=== PATIENT | male | born 1970 | race Caucasian/White ===

== ENCOUNTER → 2023-04-07 | Outpatient (CLI) | payer BC, SELFPAY ==
--- NOTE | 2023-04-07 12:37 | ST.MBS ---
Modified Barium Swallow Patient Information Study Date: 04/07/23 Study Time: 09:00 Direct Billable Minutes: 73 Total Minutes procedure & reportin Diagnosis: Squamous cell carcinoma of parotid (C07) Referring Physician: Hawk Hurd Reason for Referral: Objectively assess swallow function, assess risk for aspiration, and determine recommendations for least restrictive diet textures and compensatory strategies to improve safety of swallow. 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 After surgery, he noticed slightly decreased jaw opening, but it has since returned to normal. Irritation in swallow following surgery. He denies any current dysphagia or trismus. He is planned for radiation treatment for 6-7 weeks beginning 03/31/2023. Patient was recommended for MBSS to rule out risk for aspiration and to provide information re: baseline swallow function due to risk for worsening swallow function from current radiation treatment to treat SCC of R parotid gland. Current Diet Ordered: Regular textures / Thin liquids Dentition: WNL Mental Status: WNL Respiratory Status: Oxygenating on Room Air Penetration-Aspiration Scale Penetration-Aspiration Scale: OBJECTIVE ASSESSMENT OF SWALLOW FUNCTION (QUANTITATIVE ? PER TRIAL): PENETRATION / ASPIRATION SCALE (DOUGLASS): 1 = does not enter airway 2 = enters airway/above vocal folds/ejected 3 = enters airway/above vocal folds/not ejected 4 = enters airway/contacts vocal folds/ejected 5 = enters airway/contacts vocal folds/not ejected 6 = enters airway/below vocal folds/ejected 7 = enters airway/below vocal folds/not ejected despite effort 8 = enters airway/below vocal folds/no effort VIDEOFLOROSCOPIC SCALE SCORE (DOUGLASS): Grade I = aspiration of material that has penetrated into the laryngeal vestibule, intact cough reflex Grade II = aspiration < 10 % of the bolus, intact cough reflex Grade III = aspiration of < 10 % of the bolus, reduced cough reflex or aspiration of > 10 % of the bolus, intact cough reflex Grade IV = aspiration of > 10 % of the bolus, reduced cough reflex Penetration-Aspiration Scale Score Thin Liquid via teaspoon: Result: 1= does not enter airway Thin Liquid via teaspoon Trial 2: Result: 1= does not enter airway Thin Liquid via large single sip: cup: Result: 1= does not enter airway [place] Thick Liquid via small single sip: cup: Result: 1= does not enter airway Pudding via teaspoon: Result: 1= does not enter airway Cookie: Result: 1= does not enter airway Thin Liquid via sequential sips:straw: Result: 1= does not enter airway Oral Phase Labial Seal: No Labial Escape Tongue Control During Bolus Hold: Cohesive bolus between tongue to palatal seal Bolus Preparation/Mastication: Timely and efficient chewing and mashing Bolus Transport/Lingual Motion: Delayed initiation of tongue motion Oral Residue: Trace residue lining oral structures Pharyngeal Phase Initiation of Pharyngeal Swallow: Bolus head in pyriforms Soft Palate Elevation: No bolus between soft palate and pharyngeal wall Laryngeal Elevation: Comp. Superior move thyroid cart w/comp. apprx arytenoid cart-epig pet Anterior Hyoid Excursion: Partial anterior movement Epiglottic Movement: Complete inversion Laryngeal Vestibule Closure at Height of Swallow: Complete; no air/contrast in laryngeal vestibule Pharyngeal Stripping Wave: Present - complete Pharyngoesophageal Segment Opening: Parital distension and partial duration; parital obstruction of flow (trace retention with min retrograde flow through the upper esophageal sphincter) Tongue Base Retraction: Narrow column of contrast between tongue base & post. pharyngeal wall Pharyngeal Residue: Collection of residue within or on pharyngeal structures Esophageal Phase Esophageal Clearance: Esophageal retention w/ retrograde flow through pharyngoesophageal seg (minimal retention in mid esophagus of pudding; trace retention of thin liquids with min retrograde flow through the upper esophageal sphincter) Diagnosis/Impression Diagnosis: Oropharyngeal swallow function grossly WNL Impression: Mildly decreased tongue base retraction with trace-mild pharyngeal residue of thin liquids on certain trials. Despite mildly decreased anterior hyoid excursion, the patient has good laryngeal elevation and airway closure during the swallow. No laryngeal penetration or aspiration observed during the swallow. Trace retention of thin contrast in upper esophageal sphincter with retrograde flow to the pyriforms. Recommendations Diet: Regular Textures and Thin Liquids Compensatory Strategies: Small Bites, Small Sips, Slow Rate and Sitting upright Recommend Repeat Modified Barium Swallow: Yes (3 months s/p radiation treatment for SCC of R parotid gland to monitor risk for dysphagia and aspiration) Need for Skilled Speech Therapy Services: Yes Comment: Continue OP dysphagia therapy to monitor risk for aspiration, weight loss, malnutrition, and dehydration during radiation treatment as the patient is at risk for worsening swallowing function during and following radiation treatment. Education Completed: 1. Described result of evaluation. and 2. Pt understands evaluation & agrees with goals and treatment plan. Status Active ST Patient: Active Contact Information [facility] Speech Therapy:: Kimberly Velázquez M.A. [facility] Speech-Language Pathologist [facility] [address] [place] [address] [email or web address] [phone]
== END | disposition home or self-care (01) ==
PROVIDERS: Referring Provider Student in an Organized Health Care Education/Training Program; Visit Provider Student in an Organized Health Care Education/Training Program
DX: C07 Malignant neoplasm of parotid gland (principal)
CPT/HCPCS: 74230; 92611

== ENCOUNTER 2023-05-28 10:28 | Outpatient (RCR) | payer BC, SELFPAY | END 2023-06-22 23:59 | LOC: NS 10:28 | PROVIDERS: Visit Provider Student in an Organized Health Care Education/Training Program | DX: Z71.3 Dietary counseling and surveillance (principal); C07 Malignant neoplasm of parotid gland ==

== ENCOUNTER 2023-07-31 14:30 | Outpatient (RCR) | payer BC, SELFPAY ==
--- NOTE | 2023-03-24 12:53 | HP.SP.EV_ITS ---
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 After surgery, he noticed slightly decreased jaw opening, but it has since returned to normal. Irritation in swallow following surgery. He denies any current dysphagia or trismus. He is planned for radiation treatment for 6-7 weeks beginning 03/31/2023. Patient is employed by [employer]. He lives with his and daughter and has another daughter in college. Smoking Status: Never smoker Pain Is pain an issue with your current prescribed condition?: No Personal Preferred language: Com[place] Patient Allergies Allergies Allergies: Allergies No Known Allergies Allergy (Verified 03/18/23 10:05) Subjective Dysphagia Current Diet Solids Current Diet: Regular Current Diet Liquids Current Liquids: Thin Objective Dysphagia Administered by Administered by: Self Thin Liquids Administred via: Cup and Straw Oral Transit: WNL Bolus clearance: fully cleared Gagging: No Cough: none observed/unable to assess Pharyngeal phase: immediate laryngeal elevation Comments: No s/s of aspiration or patient reports of sensation of retention. Pureed Administered via: Spoon Oral Preparation: WNL Oral Transit: WNL Bolus clearance: fully cleared Cough: none observed/unable to assess Pharyngeal phase: immediate laryngeal elevation Comments: No s/s of aspiration or patient reports of sensation of retention. Regular Oral Preparation: WNL Oral Transit: WNL Bolus clearance: fully cleared Cough: throat clear Pharyngeal phase: immediate laryngeal elevation Comments: Throat clear following 1 bite. No patient reports of sensation of retention. Swallowing Impairment Other: No current perceived swallowing impairment. Impact Impact on Safety & Functioning: Risk for Aspiration and Risk for Inadequate Nutrition/Hydration Comments: Patient is beginning radiation treatment for SCC of R parotid gland. He is at increased risk for dysphagia due to short term effects of radiation, including xerostomia, dysgeusia, hypogeusia, disuse atrophy, and/or mucositis. MBSS recommended by TILE EDGER and Dr. Hurd to determine baseline swallow function and further assess aspiration risk as the patient's swallow is at risk to worsen over time from fdc effects of radiation, such as radiation fibrosis, xerotomia, and/or lymphedema. Recommendations Modified Barium Swallow/Cookie Swallow Recommended: Yes Swallowing Treatment: Yes Diet Texture Recommendations Solids: Regular (Level 7) Liquids: Thin (Level 0) Safety Saftey Precautions/Swallowing Recommendations (Check all that Apply): Small Sips & Bites when Eating Other: Sitting upright, Slow rate Results Swallowing Within Normal Limits: Yes SHIP PURSER V Trigeminal Nerve V Trigeminal Nerve Response: Intact VII Facial Nerve VII Facial Nerve Result: Intact X Vagus Nerve X Vagus Nerve Result: Intact XII Hypoglossal Nerve XII Hypoglossal Nerve Result: Intact Swallowing Performance Scale Swallowing Performance Scale Swallowing Performance Scale Result: 1 Normal Reference: Neuro-QoL instrument Radiation Oncology Patient FOIS Functional Oral Intake Scale Total oral diet with no restrictions: Level 7 SP Oncology PSS-HN PSS-HN Test Normalcy of Diet: Full diet Scale Result:: 100 Public Eating: No restrictions of place, food or companions-eats out any opportunity Public eating scale: 100 Understandability of Speech: Always understandable Understandability of Speech Scale: 100 Plan Plan Plan: While the patient is demonstrating overall normal swallow function at this time, will recommend dysphagia therapy to implement prophylactic oropharyngeal exercise program prior to chemoradiation and to provide ongoing assessment of swallow function and diet tolerance during treatment. Will additionally monitor patient for trismus. The patient is at increased risk for dysphagia, trismus, aspiration, malnutrition, and dehydration during radiation treatment to treat his right parotid gland squamous cell carcinoma. Will plan to obtain MBSS to determine the patient's baseline swallow function. He will be planned for repeat MBSS 3 months s/p radiation, followed by at least yearly MBSS in the first 5 years following radiation, as the patient's swallow is at risk to worsen due to long-term effects of chemoradiation. Recommendations MBS: Yes Treatment Warranted: Yes Treatment Warranted: Dysphagia Progress Prognosis: Good Frequency Frequency: Every Other Week Additional (Frequency): Frequency to change during POC based on patient's ignacio ing needs for ST during and after radiation treatment. Duration: 12 Months Goals that are Established Determination:: Goals will be added/modified as deemed necessary and appropriate. Therapy will be discontinued when results of re-evaluation indicate therapy is no longer needed or lack of progress has been documented. Goal #1-5 Goal #1: (LTG) The patient will consume least restrictive diet textures without overt s/s of aspiration with 90% acc with minimal verbal cues to decrease risk for aspiration. Goal #2: (STG) The patient will complete an oropharyngeal exercise program during and post radiation treatment independently to improve and maintain strength, ROM, and coordination of swallowing mechanism (X10 repetitions, 3-5X daily). Goal #3: (STG) The patient will complete jaw strength, coordination, and ROM exercises during and post radiation treatment independently to improve mastication and speech production abilities (X10 repetitions, 3-5X daily). Goal #4: (LTG) The patient will maintain jaw opening 35-55mm during and after radiation treatment to maintain mastication and speech abilities. Education Patient has Indicated that the Following Identified Educational Needs: None The Patient has indicated that they have no educational or learning abilities that may effect their care.: Yes Patient Instruction Patient Education: Treatment Plan, Goals, Diet Level and Home Exercise Program Other Education: Education provided regarding the potential impacts of radiation treatment on swallow function during and post treatment, including effects such as mucositis, dysgeusia, radiation fibrosis, lymphedema, and disuse atrophy which may result in restricted range of motion and weakness of swallowing mechanism. Discussed impaired swallowing and increased risk for aspiration, aspiration related illnesses, weight loss, and malnutrition. Discussed importance for speech therapy to monitor and address dysphagia during and post radiation treatment to maintain optimal swallow function and jaw ROM through continued education and prophylactic exercise program. Provided the patient a handout and demonstration of prophylactic oropharyngeal exercise program, as well as jaw ROM exercise ([place] X30 daily, [place] X30 daily, Effortful X30 daily, Jaw stretch X50 daily. The patient provided return demonstration with exercises with moderate verbal cues and demonstration. The patient would benefit from continued training to monitor proper execution of exercises and encourage strict adherence to exercise program. Person Taught: Patient Teaching Method: Discussion, Demonstration, Handout and Teach back Response to teaching: Return demonstration, Verbalize understanding and Reinforcement needed
== END 2023-07-31 19:00 | disposition home or self-care (01) ==
LOC: OT 14:30
PROVIDERS: Referring Provider Student in an Organized Health Care Education/Training Program; Visit Provider Student in an Organized Health Care Education/Training Program
DX: C07 Malignant neoplasm of parotid gland (principal); R13.10 Dysphagia, unspecified
CPT/HCPCS: 92526; 92610

== ENCOUNTER 2023-08-07 11:30 | Outpatient (RCR) | payer BC, SELFPAY ==
--- NOTE | 2023-08-01 06:53 | HP.OTEVAL_ITS ---
Patient's Visit Information Visit Information Visit Information: MEAGAN LINDSAY Jr. is a 53 year old M, referred to Occupational Therapy by Dr. Hawk Hurd DO, with a diagnosis of malignant neoplasm of parotid gland, lymphedema. Date of Evaluation: 07/31/23 Occupational Therapist: DAMION Chirinos/Karoline, CHT Subjective Subjective: This 53 year old male was seen for OT eval with dx of lymphedema sx was 2022. states he feels he was told around 40+ lymph nodes removed with the tumor pt states he did 6 weeks of radiation finished 05/14/23. pt states his neck started during radiation- but states he has lost more weight- and has become more noticeable. last 4 weeks more pronounced. Both express they want to know what they can do to get the swelling to go away. ROM ROM Comments: pt demo with with neck ROM WFL- states tightness with turning head side latterly to left Edema Other: Neck circumferential: neck 49cm head-chin 73cm Goals Goal: Patient will demonstrate a 20% reduction in edema by discharge: Yes Goal: Patient will demonstrate adequate knowledge of self-massage by the end of the second week.: Yes Goal: Patient will demonstrate adequate knowledge of skin care and precautions by the end of the first week.: Yes Goal: Patient will demonstrate adequate knowledge of therapeutic exercises by discharge.: Yes Goal: Patient will select an appropriate compression garment and demonstrate adequate knowledge of correct donning technique, care and wearing schedule by discharge.: Yes Goal: Patient will voice understanding of need to replace compression garment every four to six months by discharge.: Yes Goal: Patient will demonstrate ROM WFL by discharge.: Yes Rehabilitation General Assessment: Pt demo with head/neck lymphedema and in need of skilled OT services 3-4 visits to pt on self mtg of lymphedema, compression garments, self- manual lymph massage as well as lymph stimulation ex, and skin care and precautions. Due to dx pt would benefit from home head/neck lymphedema pneumatic pump. Today therapist ed. pt on skin care/precautions, daily use of compression garment, and/or supplement with use of k-tap. Therapist gave pt handout on self- manual lymph massage- (pt to return to allow therapist to demo [place]. and teach pt and ) pt will be instructed to perform this SMLD 2-3 x a day and use of his compression garment. pt demo understanding and agrees to POC. Rehabilitation Potential: Good Anticipated Interventions Anticipated Interventions: Education re Diagnosis, Manual Lymph Drainage, Education re Life-long lymphedema Management, Education re Skin Care and Precautions, Education re Self Massage Techniques, Education re Correct Donning Tech,Care&Wearing Sched Comp Garments and Home Program Visit Plan Frequency: 1x/Week Duration: 2-4 Weeks TEXT: Thank you for the opportunity to evaluate your patient. For Medicare and Medicare HMO plans, please review the plan of care and approve it. It will need to be FAXED BACK to us at [phone] for Medicare purposes. Please let me know if there are questions or concerns regarding this plan of care. Physician Signature: Date:
--- NOTE | 2023-10-01 14:14 | HP.OT.NRP ---
Patient Information Patient Information: MEAGAN LINDSAY Jr. was seen in my office for initial evaluation on 07/31/23. The following Plan of Care was established for this patient: POC Established Initial Frequency: 1x/Week Initial Duration: 2-4 Weeks Anticipated Interventions Anticipated Interventions: Education re Diagnosis, Manual Lymph Drainage, Education re Life-long lymphedema Management, Education re Skin Care and Precautions, Education re Self Massage Techniques, Education re Correct Donning Tech,Care&Wearing Sched Comp Garments and Home Program Last Seen Last Seen: This patient was last seen in our office 07/31/23. Pertinent comments regarding their Occupational therapy will appear below: pt was seen for eval.no further apts were scheduled and due to time lapse in services pt is d/c. At this point I will be discontinuing this patient from occupational therapy. I would be happy to see this patient again in the future if found appropriate by the physician. Thank you! Fannie Contreras, OTR/L, CHT
== END 2023-08-07 19:00 | disposition home or self-care (01) ==
LOC: OT 11:30
PROVIDERS: Referring Provider Student in an Organized Health Care Education/Training Program; Visit Provider Student in an Organized Health Care Education/Training Program
DX: C07 Malignant neoplasm of parotid gland (principal); I89.0 Lymphedema, not elsewhere classified
CPT/HCPCS: 97166; 97530

== ENCOUNTER → 2023-09-01 | Outpatient (CLI) | payer BC, SELFPAY ==
--- NOTE | 2023-09-01 14:21 | SP.MBSS_ITS ---
Modified Barium Swallow Patient Information Study Date: 09/01/23 Study Time: 13:00 Direct Billable Minutes: 103 Total Minutes procedure & reportin Diagnosis: SCC of the right parotid (C07) Referring Physician: Hawk Hurd Reason for Referral: Objectively assess swallow function, assess risk for aspiration, and determine recommendations for least restrictive diet textures and compensatory strategies to improve safety of swallow. 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 After surgery, he noticed slightly decreased jaw opening, but it has since returned to normal. He participated in radiation treatment from 04/02/2023 ? 05/14/2023. MBSS completed 04/07/23 revealing oropharyngeal swallow function grossly WNL and recommending regular textures / thin liquids. During radiation treatment, he did require a full liquid diet. He followed with ST and has since resumed regular textures / thin liquids. He was trained in prophylactic oropharyngeal exercise program prior to discharge due to risk for worsening swallow functions/p radiation treatment. He does not complete exercise program daily, but completes certain exercises here and there about every other day. His hypogeusia is mild and it comes and goes per patient report. He is managing lymphedema with OT and kinesiotaping. He has been recommended for repeat MBSS to re-assess swallow function due to risk for worsening swallow function from radiation treatment to treat SCC of R parotid gland. He denies any current dysphagia or trismus. Current Diet Ordered: Regular textures / Thin liquids Dentition: WNL and Natural Teeth Mental Status: WNL Respiratory Status: Oxygenating on Room Air Penetration-Aspiration Scale Penetration-Aspiration Scale: OBJECTIVE ASSESSMENT OF SWALLOW FUNCTION (QUANTITATIVE ? PER TRIAL): PENETRATION / ASPIRATION SCALE (DOUGLASS): 1 = does not enter airway 2 = enters airway/above vocal folds/ejected 3 = enters airway/above vocal folds/not ejected 4 = enters airway/contacts vocal folds/ejected 5 = enters airway/contacts vocal folds/not ejected 6 = enters airway/below vocal folds/ejected 7 = enters airway/below vocal folds/not ejected despite effort 8 = enters airway/below vocal folds/no effort VIDEOFLOROSCOPIC SCALE SCORE (DOUGLASS): Grade I = aspiration of material that has penetrated into the laryngeal vestibule, intact cough reflex Grade II = aspiration < 10 % of the bolus, intact cough reflex Grade III = aspiration of < 10 % of the bolus, reduced cough reflex or aspiration of > 10 % of the bolus, intact cough reflex Grade IV = aspiration of > 10 % of the bolus, reduced cough reflex Penetration-Aspiration Scale Score Thin Liquid via teaspoon: Result: 2= enter airway/above vocal folds/ejected Thin Liquid via teaspoon Trial 2: Result: 1= does not enter airway Thin Liquid via small single sip: cup: Result: 2= enter airway/above vocal folds/ejected Thin Liquid via sequential sips: cup: Result: 2= enter airway/above vocal folds/ejected [place] Thick Liquid via small single sip: cup: Result: 1= does not enter airway Pudding via teaspoon: Result: 1= does not enter airway Comment: Esophageal screen - Retention of pudding throughout the esophagus. Thin Liquid via single sip: straw: Result: 2= enter airway/above vocal folds/ejected Comment: Esophageal screen - Thin liquid wash somewhat cleared pudding contrast, but retention of pudding remained in the mid esophagus. / Cookie: Result: 1= does not enter airway Oral Phase Labial Seal: No Labial Escape Tongue Control During Bolus Hold: Posterior escape of less than half of bolus Bolus Preparation/Mastication: Timely and efficient chewing and mashing Bolus Transport/Lingual Motion: Brisk tongue motion Oral Residue: Trace residue lining oral structures Pharyngeal Phase Initiation of Pharyngeal Swallow: Bolus head at posterior laryngeal surgace of epiglottis Soft Palate Elevation: Trace column of contrast/air between soft palate and pharyngeal wall Laryngeal Elevation: Comp. Superior move thyroid cart w/comp. apprx arytenoid cart-epig pet Anterior Hyoid Excursion: Complete anterior movement Epiglottic Movement: Complete inversion Laryngeal Vestibule Closure at Height of Swallow: Incomplete; narrow column of air/contrast in laryngeal vestibule Pharyngeal Stripping Wave: Present - diminished Pharyngoesophageal Segment Opening: Parital distension and partial duration; parital obstruction of flow Tongue Base Retraction: Trace column of contrast between tongue base & post. pharyngeal wall Pharyngeal Residue: Trace residue within or on pharyngeal structures Esophageal Phase Esophageal Clearance: Esophageal retention Diagnosis/Impression Diagnosis: Oropharyngeal swallow function grossly WNL Impression: Oropharyngeal swallow function grossly WNL. Decreased bolus control with <1/2 of the bolus spilling posteriorly to the posterior laryngeal surface of the epiglottis prior to swallow onset observed with thin liquids especially. Trace laryngeal penetration of thin liquids observed throughout study. All trials successfully ejected from the laryngeal vestibule during the swallow. No aspiration observed during the study. The esophageal phase is marked by... -Esophageal retention of pudding throughout esophagus. Esophageal retention somewhat improved when provided thin liquid wash. Recommendations Diet: Regular Textures and Thin Liquids Compensatory Strategies: Small Bites, Small Sips, Slow Rate, Alternate bites/solids and sips/liquids, Sitting upright and Remain sitting upright for 30 minutes after PO intake Recommend Repeat Modified Barium Swallow: Yes Comment: Plan for repeat MBSS in 6-12 months to continue to monitor swallow function s/p radiation, as pt is at increased risk for worsening dysphagia and aspiration risk related to senior care effects of radiation. Need for Skilled Speech Therapy Services: No Comment: [employer] educated recommendation to continue with recommended oropharyngeal exercise program as his swallow function is at risk to worsen s/p radiation d/t senior care effects of radiation. He reports still having his home exercise program and not requiring a follow-up session to review exercises. He verbalized understanding of recommended consults and strategies to decrease risk for aspiration and reflux. Recommended Referrals: GI Consult (Consider GI consult due to reports of phlegm and globus sensation in the AM and due to esophageal retention of pudding throughout the esophagus.) Education Completed: 1. Described result of evaluation. and 5. Patient dem onstrates recommended strategies. Status Active ST Patient: Active Contact Information [facility] Speech Therapy:: Kimberly Velázquez M.A. [facility]? Speech-Language Pathologist?? [facility] [address]?? [place] [address]?? [email or web address]?? [phone]??
--- OUTSIDE RECORDS SUMMARY | 2023-09-01 18:37 | XMS RPT_ITS | CCD ---
Author Name Unknown Address [address] [place] [address] Organization [facility] Care Team Providers Care Acute Care Assistant Name Role Phone Douglas Rios Unavailable Sabas Torres Unavailable Nicole Barreto Unavailable Unavailable Unavailable Unavailable Unavailable None, No PCP Unavailable Unavailable Douglas Rios Unavailable [phone] Renato Oates Unavailable Estefani, Dr. Douglas Mortensen Primary Care Unavailable Trevor, Dr. Delisa Lewis Attending Unavailabl Renato Malhotra Referring Unavailable Estefani, Dr. Douglas Mortensen Primary Care Unavailable TANK GODOY Attending Unavailable Estefani, Dr. Douglas Mortensen Primary Care Unavailable Renato Oates Admitting Unavailable Renato Oates Attending Unavailable Renato Oates Referring Unavailable Estefani, Dr. Douglas Mortensen Primary Care Unavailable Renato Oates Attending Unavailable TANK GODOY Referring Unavailable Estefani, Dr. Douglas Mortensen Primary Care Unavailable Renato Oates Attending Unavailable TANK GODOY Referring Unavailable Dr. Gian Bautista Attending Unavaila ble Estefani, Dr. Douglas Mortensen Primary Care Unavailable Renato Oates Referring Unavailable Douglas Rios Primary Care Unavailable Douglas Rios Attending Unavailable Douglas Rios Referring Unavailable Douglas Rios Primary Care Unavailable MD TANK GODOY Sr. Attending Jeannie vailable Douglas Rios Primary Care Unavailable MD TANK GODOY Sr. Attending Jeannie vailable Douglas Rios Primary Care Unavailable Dr. Renato Oates Attending Jeannie vailable Feliciano, Dr. Renato Bai Attending Jeannie vailable Douglas Rios Primary Care Unavailable Yadiradaniel PRESS HAND-MANAGER OF APPLICATIONS DEVELOPMENT, Arabella P Unavailable Douglas Rios MD Primary Care Provider RENATO OATES Attending Unavailable DOUGLAS RIOS Primary Care Unavailable DOUGLAS RIOS Primary Care Unavailable RENATO OATES Attending Unavailable DOUGLAS RIOS Primary Care Unavailable RENATO OATES Attending Unavailable DOUGLAS RIOS Primary Care Unavailable Medications Current Medications Medication Drug Class(es) Dates Sig (Normalized) Sig (Original) acetaminophen 500 mg oral capsule (5 sources) Start: 02-13-2023 End: 02-22-2023 take 2 capsules by mouth every eight hours acetaminophen 500 mg oral capsule ; 2 cap(s) orally every 8 hours -.ADOD 02/13 - .Meds to Beds - .Patient Location [facility] Quantity: 60 Refills: 0 Ordered: 13-Feb-2023 Emma Kim Start: 13-Feb-2023 End: 22-Feb-2023 Generic Substitution Allowed Comments: This product contains acetaminophen. Do not use with any other product containing acetaminophen to prevent possible liver damage. Completed/Discontinued Medications Medication Drug Class(es) Dates Sig (Normalized) Sig (Original) ascorbic acid 1000 mg oral tablet (20 sources) Vitamin C Start: 02-05-2023 Vitamin C 1000 MG Oral Tablet Quantity: 0 Refills: 0 Ordered: 05-Feb-2023 DO Start : 05-Feb-2023 Active Problems Active Problems Problem Classification Problem Date Documented Da te Episodic/Chronic Acute posthemorrhagic anemia (1 source) Acute posthemorrhagic anemia; Translations: [Acute posthemorrhagic anemia] Onset: 02-14-2023 Episodic Anal and rectal conditions (20 sources) Rectal prolapse; Translations: [Rectal prolapse] Resolved: 09-19-2021 Episodic Cancer of head and neck (17 sources) Carcinoma of parotid gland ; Translations: [Malignant neoplasm of parotid gland] Onset: 02-12-2023 02-13-2023 Chronic Diseases of mouth; excluding dental (17 sources) Mass of right parotid gland; Translations: [Other specified diseases of the salivary glands] Onset: 01-16-2023 Resolved: 08-24-2023 04-23-2023 Episodic Essential hypertension (17 sources) Benign essential hypertension; Translations: [Benign essential hypertension] Onset: 10-23-2022 10-23-2022 Chronic Neoplasms of unspecified nature or uncertain behavior (4 sources) Neoplasm of uncertain behavior, unspecified; Translations: [Neoplasm of uncertain behavior, unspecified] Onset: 01-31-2023 Episodic Other gastrointestinal disorders (5 sources) Chronic constipation; Translations: [Constipation, unspecified] Episodic Other nervous system disorders (2 sources) Disorder of accessory nerve; Translations: [Disorders of accessory [11th] nerve] Episodic Other nervous system disorders (2 sources) Disorders of other specified cranial nerves; Translations: [Disorders of other specified cranial nerves] Onset: 02-26-2023 Episodic Other non-traumatic joint disorders (1 source) Pain in right shoulder; Translations: [Pain in right shoulder] Onset: 03-19-2023 Episodic Other nutritional; endocrine; and metabolic disorders (1 source) Obesity, unspecified; Translations: [Obesity, unspecified] Onset: 02-14-2023 Chronic Other nutritional; endocrine; and metabolic disorders (1 source) Body mass index (BMI) 31.0-31.9, adult; Translations: [Body mass index [BMI] 31.0-31.9, adult] Onset: 02-14-2023 Chronic Residual codes; unclassified (13 sources) History finding; Translations: [Other specified conditions influencing health status] Episodic Residual codes; unclassified (1 source) Other specified health status; Translations: [Other specified health status] Onset: 02-26-2023 Episodic Thyroid disorders (6 sources) Disorder of thyroid, unspecified; Translations: [Disorder of thyroid, unspecified] Onset: 01-15-2023 Episodic Unclassified (2 sources) POSS HEMORRHOID 09-03-2021 Past or Other Problems Problem Classification Problem Date Documented Da te Episodic/Chronic Gastrointestinal hemorrhage (13 sources) Hematochezia; Translations: [Blood in stool] Resolved: 2 Episodic Hemorrhoids (18 sources) Prolapsed internal hemorrhoids; Translations: [Internal hemorrhoids with other complication] Onset: 3 09-03-2021 Episodic Other gastrointestinal disorders (8 sources) H/O: gastrointestinal disease; Translations: [Personal history of other diseases of digestive system] Resolved: 2 Episodic Other screening for suspected conditions (not mental disorders or infectious disease) (12 sources) Patient encounter status; Translations: [Special screening for malignant neoplasms of colon] Onset: 3 Episodic Other skin disorders (3 sources) Mass of neck; Translations: [Localized swelling, mass and lump, neck] Onset: 3 Resolved: 4 01-21-2023 Episodic Unclassified (3 sources) Onset: 3 Resolved: 4 04-23-2023 Results Test Name Value Interpretation Reference Range Facil ity Vital Signs Date Time Vital Sign Value Performing Clinician Facility 08-13-2023 11:48-0500 Body height 181.6 cm Renato Oates MD Work Phone: [facility] 08-13-2023 11:48-0500 Body mass index (BMI) [Ratio] 28.04 kg/m2 Renato Oates MD Work Phone: [facility] 08-13-2023 11:48-0500 Body temperature 97.5 [degF] Renato Oates MD Work Phone: [facility] 08-13-2023 11:48-0500 Body weight 92.49 kg Renato Oates MD Work Phone: [facility] 05-28-2023 14:36-0500 Body height 181.6 cm Renato Oates MD Work Phone: [facility] 05-28-2023 14:36-0500 Body mass index (BMI) [Ratio] 28.95 kg/m2 Renato Oates MD Work Phone: [facility] 05-28-2023 14:36-0500 Body temperature 97.3 [degF] Renato Oates MD Work Phone: [facility] 05-28-2023 14:36-0500 Body weight 95.48 kg Renato Oates MD Work Phone: [facility] 04-23-2023 09:45-0400 Body height 181.6 cm Renato Oates MD Work Phone: [facility] 04-23-2023 09:45-0400 Body mass index (BMI) [Ratio] 31.78 kg/m2 Renato Oates MD Work Phone: [facility] 04-23-2023 09:45-0400 Body temperature 96.8 [degF] Renato Oates MD Work Phone: [facility] 04-23-2023 09:45-0400 Body weight 104.83 kg Renato Oates MD Work Phone: [facility] 02-14-2023 15:18-0400 Body temperature 96.8 [degF] Douglas Tavallaee Other Phone: [facility] 02-14-2023 15:18-0400 Diastolic blood pressure 89 mm[Hg] Douglas Tavallaee Other Phone: [facility] 02-14-2023 15:18-0400 Heart rate 67 /min Douglas Tavallaee Other Phone: [facility] 02-14-2023 15:18-0400 Respiratory rate 16 /min Douglas Tavallaee Other Phone: [facility] 02-14-2023 15:18-0400 SaO2% (BldA) [Mass fraction] 95 % Douglas Tavallaee Other Phone: [facility] 02-14-2023 15:18-0400 Systolic blood pressure 144 mm[Hg] Douglas Rios Other Phone: [facility] 02-12-2023 13:08-0400 Body temperature 37.0 {degrees_C} Douglas Rios Work Phone: [facility] [place] [address] Work Phone: Encounters Encounter Date Encounter Type Care Provider Facility Start: 08-13-2023 End: 08-14-2023 ambulatory RENATO OATES [facility] Start: 08-13-2023 End: 08-13-2023 Office outpatient visit 15 minutes Renato Oates MD Work Phone: [facility] Procedures Date Procedure Procedure Detail Performing Clinician Start: 08-13-2023 Follow-up visit Follow-up RENATO OATES Start: 02-12-[address] Rico Rios Plan of Treatment Date Care Activity Detail Author Start: 12-19-2027 Lipid panel Lipid Panel [facility] Start: 01-27-2026 Screening for malignant neoplasm of colon [facility] Start: 10-31-2023 Yearly Adult Physical Yearly Adult Physical [facility] Start: 10-15-2023 End: 10-15-2023 Patient encounter procedure 10/15/2023 8:45 AM EDT Office Visit [facility] [address] [place] [id number] [place] [address] Department [place] [address] [facility] Start: 2023 End: 2023 Patient encounter procedure 2023 11:45 AM EST Office Visit [facility] [address] [place] [address] [place] [address] [place] [address] [facility] Start: 04-02-2023 FUV, Provider: Renato Oates, Status: Pen, Time: 11:00 AM FUV, Provider: Renato Oates, Status: Pen, Time: 11:00 AM MS-Cforqtwgjymckk-Tri dman Work Phone: Start: 02-26-2023 Patient encounter procedure [facility] Start: 02-26-2023 POV, Provider: Renato Oates, Status: Luis, Time: 10:45 AM POV, Provider: Renato Oates, Status: Luis, Time: 10:45 AM HX-Wvdsmhrpnigtpe-Vlw dman Work Phone: Start: 02-21-2023 Influenza vaccination Influenza Vaccine (#1) [facility] Start: 02-14-2023 End: 02-15-2024 Magnesium Hydroxide Oral Liquid 10 mL Oral Every 24 Hours PRN ; (MILK OF MAGNESIA)DOSE = 30 mL Oral Every 24 Hours Start: 14-Feb-2023 End: 14-Feb-2024 Ordered: 14-Feb-2023 Emma Kim [facility] Start: 02-12-2023 End: 02-13-2024 [facility] Start: 02-12-2023 [facility], Provider: Renato Oates, Status: Luis, Time: 12:00 PM [facility], Provider: Renato Oates, Status: Pen, Time: 12:00 PM WT-Ritmhjfgqqblqu-Cxe dman Work Phone: Start: 02-12-2023 [facility], Provider: Gian Bautista, Status: Luis, Time: 7:00 AM [facility], Provider: Gian Bautista, Status: Luis, Time: 7:00 AM YW-Ycfzqviaoqbdqp-Tfe dman Work Phone: Start: 10-02-2021 FUV, Provider: Nicole Barreto, Status: Pen, Time: 11:00 AM FUV, Provider: Nicole Barreto, Status: Pen, Time: 11:00 AM [facility] Work Phone: Start: 09-19-2021 [facility], Provider: Arabella Sparrow, Status: Pen, Time: 10:00 AM [facility], Provider: Arabella Sparrow, Status: Pen, Time: 10:00 AM [facility] [address] Work Phone: Start: 09-11-2021 NPV, Provider: Isabela Toure, Status: Pen, Time: 9:30 AM NPV, Provider: Isabela Toure, Status: Pen, Time: 9:30 AM [facility] Work Phone: Start: 2019 Zoster Vaccines (1 of 2) Zoster Vaccines (1 of 2) [facility] Start: 1991 DTaP/Tdap/Td Vaccines (1 - Tdap) DTaP/Tdap/Td Vaccines (1 - Tdap) [facility] Start: 1987 Diabetes mellitus screening Diabetes Screening [facility] Start: 1970 MMR Vaccines (1 of 1 - Standard series) MMR Vaccines (1 of 1 - Standard series) [facility] Start: 01-27-1970 COVID-19 Vaccine (#1) COVID-19 Vaccine (#1) [facility] Start: 1969 Hepatitis B Vaccines (1 of 3 - 3-dose series) Hepatitis B Vaccines (1 of 3 - 3-dose series) [facility] Start: 1969 HIV screening HIV Screening [facility] Start: 1969 Screening for malignant neoplasm of colon [facility] Immunizations Immunization Date Immunization Notes Care Provider Vinay torres 10-29-2022 zoster vaccine-recombinant adjuvanted (Shingrix, PF,) 50 mcg/0.5 mL vaccine Renato Oates MD Work Phone: [facility] Work Phone: 07-28-2019 influenza, injectabl e, quadrivalent, preservative free Nicole Barreto Work Phone: [facility] Work Phone: 07-28-2019 influenza virus vaccine, unspecified formulation Renato Oates MD Work Phone: [facility] Work Phone: Payers Date Payer Category Payer Unknown 2021 Unknown [id number] 1969 Unknown [id number] 2.16. [id number] 1969 Unknown [id number] 2.16. [id number] 1969 Unknown [id number] 2.16. [id number] 1969 Unknown [id number] 2.16. [id number] 1969 Unknown [id number] 2.16. [id number] 1969 Unknown [id number] 2.16. [id number] 1969 Unknown [id number] 2.16.8 [id number] 1969 Unknown [id number] 2.16.8 [id number] 1969 Unknown [id number] 2.16.8 [id number] 1969 Unknown [id number] 2.16.8 [id number] 1969 Unknown [id number] 2.16.8 [id number] 1969 Unknown [id number] 2.16.8 [id number] 1969 Unknown [id number] 2.16.8 [id number] 1969 Unknown [id number] 2.16.8 [id number] 1969 Unknown [id number] 2.16.84 [id number] Social History Date Type Detail Facility [facility] Tobacco smoking consumption unknown [facility] Start: 04-23-2023 End: 08-13-2023 Non-smoker Non-smoker [facility] Start: 10-23-2022 Tobacco smoking status NHIS Never smoked tobacco [facility] Work Phone: Start: 10-23-2022 Tobacco use and exposure Smokeless tobacco non-user [facility] Work Phone: Start: 04-23-2023 End: 08-24-2023 Alcohol intake Current drinker of alcohol (finding) [facility] Work Phone: Start: 04-23-2023 End: 08-13-2023 Tobacco use panel [facility] Start: 1970 Sex Assigned At Not on file [facility] Work Phone: Start: 04-13-2023 End: 08-13-2023 Exposure to SARS-CoV-2 (event) Not sure [facility] NEGATED: Highlighted rowStart: NINF History of tobacco use Passive smoker [facility] Work Phone: Functional Status Date Assessment Result Facility Functional observable [facility] Mental Status Date Assessment Result Facility 02-13-2023 Cognitive functi ons [id number] [facility] Clinical Notes 09-12-2018 to 08-24-2023 Assessment & Plan Note - Renato Oates MD - 08/24/2023 2:41 PM ESTAssessment & Plan Note - Renato Oates MD - 08/24/2023 2:41 PM Shasta Oates MD - 08/13/2023 11:45 AM EST Note Date & Type Note Facility 08-24-2023 Evaluation + Plan note Associated Problem(s): 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, 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, adverse effect of radiation Continue conservative therapy [facility] Work Phone: 08-24-2023 Evaluation + Plan note Associated Problem(s): Squamous cell carcinoma of parotid (CMS/HCC) No evidence of disease Recovering well from radiation changes Reassurance provided Follow up in 2-3 months [facility] Work Phone: 08-24-2023 Miscellaneous Notes Associated Problem(s): 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 male following up with me today regarding his right parotid SCCa. Patient is s/p right neck dissection, right parotidectomy with right SCM advancement closure on 02/12/[address] Bautista. Last seen 05/2023. He completed his radiation therapy. He is doing well overall. Having some dry mouth/xerostomia symptoms which are slowly getting better. His skin is also improving. History: Dx: R parotid SCCa 12/2022: Seen by Dr. Godoy for R parotid mass 01/15/23: FNA of R parotid mass, Path + SCCa 01/16/23: CT neck w/ contrast- agressive appearing heterogeneously enhancing mass with intrinsic calcifications in the right parotid tail measuring up to 2.5 cm. This is inseparable from the right sternocleidomastoid muscle. 01/31/23: PET scan- This shows focally intensely increased FDG uptake within a mass in the inferior aspect of the right parotid gland with an SUV of 18.8. There is no uptake anywhere else in the head/neck or distant metastasis. 02/12/23: S/p right neck dissection, right parotidectomy with right SCM advancement closure 04/01/23: Started adjuvant xrt 06/14: Completed radiation therapy ROS: Review of Systems Constitutional: Negative for appetite change, chills, fatigue, fever and unexpected weight change. HENT: Negative for dental problem, drooling, ear pain, facial swelling, hearing loss, mouth sores, sore throat, tinnitus, trouble swallowing and voice change. +dry mouth Respiratory: Negative for cough, shortness of breath and stridor. Gastrointestinal: Negative for nausea and vomiting. Musculoskeletal: Negative for neck pain. Hematological: Negative for adenopathy. All other systems reviewed and are negative. PE: ENT Physical Exam Constitutional Appearance: patient appears well-developed and well-groomed, patient is cooperative; Communication/Voice: communication appropriate for developmental age; Head and Face Appearance: head appears normal; facial scars present; Salivary: Salivary comments: S/p right parotidectomy, scar is well healed. No recurrent masses or lesions Head and Face comments: Skin erythema is improved compared to last visit Ear Auricles: right auricle normal; left auricle normal; Ear Canals: right ear canal normal; left ear canal normal; Tympanic Membranes: right tympanic membrane normal; left tympanic membrane normal; Nose External Nose: nares patent bilaterally; external nose normal; Internal Nose: nasal mucosa normal; septum normal; Oral Cavity/Oropharynx Lips: normal; Gums: gingiva normal; Tongue: normal; Oral mucosa: mucous membranes dry; OC/OP comments: +xerostomia Neck Neck: scars present; Neck comments: +parotidectomy & neck scar without recurrent mass Respiratory Inspection: breathing unlabored; Cardiovascular Inspection: extremities are warm and well perfused; Lymphatic Palpation: no cervical adenopathy noted; Neurovestibular Mental Status: alert and oriented; Psychiatric: mood normal; affect is appropriate; Procedures ASSESSMENT AND PLAN: Problem List Items Addressed This Visit Squamous cell carcinoma of parotid (CMS/HCC) - Primary Current Assessment & Plan No evidence of disease Recovering well from radiation changes Reassurance provided Follow up in 2-3 months Xerostomia due to radiotherapy Current Assessment & Plan Mild, 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, adverse effect of radiation Continue conservative therapy Renato Oates MD Head & Neck Surgical Oncology & Reconstruction Department of Otolaryngology - Head and Neck Surgery By signing my name below, I, Tiana Laughlin Scribe, attest that this documentation has been prepared under the direction and in the presence of Dr. Renato Oates MD. All medical record entries made by the Scribe were at my direction and personally dictated by me, Dr. Renato Oates. I have reviewed the chart and agree that the record accurately reflects my personal performance of the history, physical exam, discussion and plan. documented in this encounter [facility] Work Phone: 06-11-2023 Evaluation + Plan note Associated Problem(s): Squamous cell carcinoma of parotid (CMS/HCC) No evidence of disease Continue to follow closely Recommend CT neck/chest in 3 months Follow up in 2 months [facility] Work Phone: 06-11-2023 Miscellaneous Notes Associated Problem(s): Squamous cell carcinoma of parotid (CMS/HCC) No evidence of disease Continue to follow closely Recommend CT neck/chest in 3 months Follow up in 2 months documented in this encounter [facility] Work Phone: 05-28-2023 History of Present illness Narrative Cancer follow up TSH: Lab Results Component Value Date TSH 2.63 12/18/2022 Chief Complaint Patient presents with Follow-up Right side parotidectomy HPI: Balwinder Mckinney Jr.is a 52 y.o. male following up with me today regarding his right parotid SCCa. Patient is s/p right neck dissection, right parotidectomy with right SCM advancement closure on 02/12/[address] Bautista. Last seen 04/23/2023. He completed his radiation therapy since his last visit. He is doing well overall. Having some dry mouth/xerostomia symptoms. History: Dx: R parotid SCCa 12/2022: Seen by Dr. Godoy for R parotid mass 01/15/23: FNA of R parotid mass, Path + SCCa 01/16/23: CT neck w/ contrast- agressive appearing heterogeneously enhancing mass with intrinsic calcifications in the right parotid tail measuring up to 2.5 cm. This is inseparable from the right sternocleidomastoid muscle. 01/31/23: PET scan- This shows focally intensely increased FDG uptake within a mass in the inferior aspect of the right parotid gland with an SUV of 18.8. There is no uptake anywhere else in the head/neck or distant metastasis. 02/12/23: S/p right neck dissection, right parotidectomy with right SCM advancement closure 04/01/23: Started adjuvant xrt 06/14: Completed radiation therapy ROS: Review of Systems Constitutional: Negative for appetite change, chills, fatigue, fever and unexpected weight change. HENT: Negative for dental problem, drooling, ear pain, facial swelling, hearing loss, mouth sores, sore throat, tinnitus, trouble swallowing and voice change. +dry mouth Respiratory: Negative for cough, shortness of breath and stridor. Gastrointestinal: Negative for nausea and vomiting. Musculoskeletal: Negative for neck pain. Hematological: Negative for adenopathy. All other systems reviewed and are negative. PE: ENT Physical Exam Constitutional Appearance: patient appears well-developed and well-groomed, patient is cooperative; Communication/Voice: communication appropriate for developmental age; Head and Face Appearance: head appears normal; Salivary: Salivary comments: S/p right parotidectomy, scar is well healed. No recurrent masses or lesions Ear Auricles: right auricle normal; left auricle normal; Ear Canals: right ear canal normal; left ear canal normal; Tympanic Membranes: right tympanic membrane normal; left tympanic membrane normal; Nose External Nose: nares patent bilaterally; external nose normal; Internal Nose: nasal mucosa normal; septum normal; Oral Cavity/Oropharynx Lips: normal; Gums: gingiva normal; Tongue: normal; Oral mucosa: mucous membranes dry; OC/OP comments: +xerostomia Neck Neck: scars present; Neck comments: +parotidectomy & neck scar without mass Respiratory Inspection: breathing unlabored; Cardiovascular Inspection: extremities are warm and well perfused; Lymphatic Palpation: no cervical adenopathy noted; Neurovestibular Mental Status: alert and oriented; Psychiatric: mood normal; affect is appropriate; Procedures ASSESSMENT AND PLAN: Problem List Items Addressed This Visit Squamous cell carcinoma of parotid (CMS/HCC) Current Assessment & Plan No evidence of disease Continue to follow closely Recommend CT neck/chest in 3 months Follow up in 2 months Renato Oates MD Head & Neck Surgical Oncology & Reconstruction Department of Otolaryngology - Head and Neck Surgery By signing my name below, I, Jeannette Frank, attest that this documentation has been prepared under the direction and in the presence of Dr. Renato Oates MD. All medical record entries made by the Scribe were at my direction and personally dictated by me, Dr. Renato Oates. I have reviewed the chart and agree that the record accurately reflects my personal performance of the history, physical exam, discussion and plan. documented in this encounter [facility] Work Phone: 05-28-2023 Instructions Tiana Laughlin RN - 05/28/2023 2:[address] Oates evaluated you today. Your care plan is outlined below: -- Dr. Oates recommends therabreath, biotne, xylitol melts for dry mouth -- You can use alpha lipoic acid for your burning mouth and use an all natural tooth paste with no sodium lauryl sulfate. -- Follow up with Dr. Oates in 2 mo. This appointment was scheduled at the end of your visit today. If you need to reschedule, please call the office at [phone]. Please keep in mind that last minute cancellations often result in delayed follow-up appointments. General appointment line please call [phone] For general questions or scheduling issues please call [phone] option #2 For medical questions or surgery scheduling please call [phone] on Mondays, Wednesdays and or [phone] on Tuesdays and Fridays. Please be sure to leave a voice mail or your call will not be able to be returned. Dr. Oates makes every effort to run on time for your appointments. Therefore, if you are more than 30 minutes late for your appointment, unrelated to a scan or another appointment such as chemotherapy or radiation, your appointment will need to be rescheduled to another day. We appreciate your understanding. documented in this encounter [facility] Work Phone: 04-23-2023 Evaluation + Plan note Associated Problem(s): Stomatitis and mucositis Early mucositis with loss of taste/smell Reassurance provided Discussed nutrition/diet during radiation therapy to prevent weight loss [facility] Work Phone: 04-23-2023 Miscellaneous Notes Associated Problem(s): Stomatitis and mucositis Early mucositis with loss of taste/smell Reassurance provided Discussed nutrition/diet during radiation therapy to prevent weight loss Associated Problem(s): Squamous cell carcinoma of parotid (CMS/HCC) - Currently getting adjuvant radiation treatment with Dr. Hurd. Set to finish 05/14/23. - Plan to follow up 06/14 documented in this encounter [facility] Work Phone: 04-23-2023 Evaluation + Plan note Associated Problem(s): Squamous cell carcinoma of parotid (CMS/HCC) - Currently getting adjuvant radiation treatment with Dr. Hurd. Set to finish 05/14/23. - Plan to follow up 06/14 [facility] Work Phone: 04-23-2023 History of Present illness Narrative Cancer follow up TSH: Lab Results Component Value Date TSH 2.63 12/18/2022 Chief Complaint Patient presents with Head And Neck Cancer Follow up HPI: Balwinder Ramey Doesperanza Reyesis a 52 y.o. male following up with me today regarding his right parotid SCCa. Patient is s/p right neck dissection, right parotidectomy with right SCM advancement closure on 02/12/[address] Bautista. Last seen 02/26/2023. He is 3 weeks into radiation therapy. He is doing well. Still running daily. Lost his taste and smell over the last week. Starting to get some skin changes. History: Dx: R parotid SCCa 12/2022: Seen by Dr. Godoy for R parotid mass 01/15/23: FNA of R parotid mass, Path + SCCa 01/16/23: CT neck w/ contrast- agressive appearing heterogeneously enhancing mass with intrinsic calcifications in the right parotid tail measuring up to 2.5 cm. This is inseparable from the right sternocleidomastoid muscle. 01/31/23: PET scan- This shows focally intensely increased FDG uptake within a mass in the inferior aspect of the right parotid gland with an SUV of 18.8. There is no uptake anywhere else in the head/neck or distant metastasis. 02/12/23: S/p right neck dissection, right parotidectomy with right SCM advancement closure 04/01/23: Started adjuvant xrt ROS: Review of Systems Constitutional: Negative for appetite change, chills, fatigue, fever and unexpected weight change. HENT: Negative for dental problem, drooling, ear pain, facial swelling, hearing loss, mouth sores, sore throat, tinnitus, trouble swallowing and voice change. +loss of taste/smell Respiratory: Negative for cough, shortness of breath and stridor. Gastrointestinal: Negative for nausea and vomiting. Musculoskeletal: Negative for neck pain. Hematological: Negative for adenopathy. All other systems reviewed and are negative. PE: ENT Physical Exam Constitutional Appearance: patient appears well-developed and well-groomed, patient is cooperative; Communication/Voice: communication appropriate for developmental age; Head and Face Appearance: head appears normal; Ear Auricles: right auricle normal; left auricle normal; Nose External Nose: nares patent bilaterally; external nose normal; Internal Nose: nasal mucosa normal; septum normal; bilateral inferior turbinates normal; Oral Cavity/Oropharynx Lips: normal; Gums: gingiva normal; Tongue: normal; Oral mucosa: normal; Hard palate: normal; OC/OP comments: +erythema of the posterior right oropharynx c/w early mucositis Neck Neck: scars present; Neck comments: +left neck erythema from radiation Respiratory Inspection: breathing unlabored; Cardiovascular Inspection: extremities are warm and well perfused; Lymphatic Palpation: no cervical adenopathy noted; Neurovestibular Mental Status: alert and oriented; Psychiatric: mood normal; affect is appropriate; Procedures ASSESSMENT AND PLAN: Problem List Items Addressed This Visit Squamous cell carcinoma of parotid (CMS/HCC) Current Assessment & Plan - Currently getting adjuvant radiation treatment with Dr. Hurd. Set to finish 05/14/23. - Plan to follow up 06/14 Stomatitis and mucositis - Primary Current Assessment & Plan Early mucositis with loss of taste/smell Reassurance provided Discussed nutrition/diet during radiation therapy to prevent weight loss Renato Oates MD Head & Neck Surgical Oncology & Reconstruction Department of Otolaryngology - Head and Neck Surgery By signing my name below, I, Jeannette Frank, attest that this documentation has been prepared under the direction and in the presence of Dr. Renato Oates MD. All medical record entries made by the Scribe were at my direction and personally dictated by me, Dr. Renato Oates. I have reviewed the chart and agree that the record accurately reflects my personal performance of the history, physical exam, discussion and plan. documented in this encounter [facility] Work Phone: 04-23-2023 Instructions Tiana Laughlin RN - 04/23/2023 9:[address] Oates evaluated you today. Your care plan is outlined below: -- Follow up with Dr. Oates in May. This appointment was scheduled at the end of your visit today. If you need to reschedule, please call the office at [phone]. Please keep in mind that last minute cancellations often result in delayed follow-up appointments. General appointment line please call [phone] For general questions or scheduling issues please call [phone] option #2 For medical questions or surgery scheduling please call [phone] on Mondays, Wednesdays and or [phone] on Tuesdays and Fridays. Please be sure to leave a voice mail or your call will not be able to be returned. Dr. Oates makes every effort to run on time for your appointments. Therefore, if you are more than 30 minutes late for your appointment, unrelated to a scan or another appointment such as chemotherapy or radiation, your appointment will need to be rescheduled to another day. We appreciate your understanding. documented in this encounter [facility] Work Phone: 03-10-2023 Note BALWINDER MCKINNEY was presented at Head and Neck Tumor Board Conference Conference date: 07-Mar-2023 Conference Review Type: Treatment Planning Impression 52 YO Primary site: PAROTID Grade: II Histology: MOD DIFF SQUAMOUS CELL CARCINOMA Head and Neck histology: Squamous Cell CA Stage: T2, N2B, M0 National Guidelines discussed: yes Recommendations Recommendations Radiation Referrals Rad Onc Other recommendations: RECOMMEND RADIATION Disclaimer SCC tumor board recommendations represent the consensus opinion of physicians present at a weekly patient care conference. The treating SCC physician is not always present, and many of the physicians formulating the recommendation have not personally seen or examined the patient under discussion. It is understood that the treating SCC physician considers the expertise of the Tumor Board Recommendation in formulating his/her plan for the patient. However, in many situations, based on individualized patient considerations, a different plan is determined by the treating physician to be the optimal medical management. Electronic Signatures: Connie Escobar (COOR) (Signed 10-Mar-2023 06:22) Authored: Impression, Recommendations, Note, Disclaimer Last Updated: 10-Mar-2023 06:22 by Connie Escobar (COOR) [facility] 02-14-2023 Note Send Summary: Discharge Summary Providers: Provider RoleProvider Name Renato Dumont ReferringRenato Oates Mehrdad M Note Recipients: Renato Oates MD Tavallaee, Mehrdad M, MD Discharge: Summary: Admission Date: .12-Feb-2023 05:52:00 Discharge Date: 14-Feb-2023 Attending Physician at Discharge: Renato Oates Admission Reason: Parotid mass Final Discharge Diagnoses: Parotid mass Procedures: Date: 12-Feb-2023 13:00:00 Procedure Name: 1. right parotidectomy with facial nerve dissection 2. Right selective neck dissection levels I-Iv 3. Right selective level 1B neck dissection Date: 12-Feb-2023 13:02:00 Procedure Name: 1. right SCM advancement closure 2. closure of acquired defect of parotid Condition at Discharge: Satisfactory Disposition at Discharge: .Home Vital Signs: T PRBPMAPSpO2 [id number]/8995% Date/Time02/14 13: 13: 13: 13: 13:18 Range(36C - 36.6C ) (66 - 88 ) (16 - 18 ) (96 - 150 )/ (53 - 89 ) (92% - 97% ) Date: Weight/Scale Type:Height: 12-Feb-2023 17:99864.7 kg / claqurzc953.1 cm Physical Exam: Vitals reviewed in EMR Gen: NAD, AOx3, resting comfortably in bed Eyes: EOMI, sclera clear, PERRL Ears: Normal external ears bilaterally Nose: No rhinorrhea; anterior nares clear Oral Cavity: Moist mucus membrane Head: normocephalic, atraumatic Neck: Incision well approximated, c/d/i, no active bleeding or oozing, no signs of fluid collection or hematoma Resp: Symmetric chest rise, non-labored breathing on room Cards: No clubbing/cyanosis/edema in hands Gastro: Soft, non-distended, : voiding spontaneously, clear yellow diet Extremities: Moves all extremities Psych: Appropriate mood and affect Drains: All drains removed Hospital Course: Balwinder Mckinney is a 52 yo M with presenting problem of parotid mass, who underwent triple endoscopy, R parotidectomy, R neck dissection levels II-IV, with primary closure. Patient had an uncomplicated surgical course. Please see operative reoprt for full details. Patient recovered in PACU and was transferred to [place] [address] for post-operative care. Patient post-operative course was uncomplicated. Patient had no facial nerve weakness. IV pain medications were transitioned to enteral medications, cramer was removed while in the OR, regular diet resumed. Home medications were resumed. Surgical drains were monitored until output had decreased to less than 30cc over a 24 hr period. On day of discharge, post-operative pain was well controlled with enteral pain medication, breathing on room air, voiding spontaneously ambulating well, and was tolerating a diet. Follow-up arranged with Dr. Oates. Active Issues: Parotid SCC Possible Cervical Lymph Node Mets Acute Blood Loss Anemia Class I Obesity HTN Total time spent today was 40 minutes, more than half of my time was spent coordinating patients discharge. Discharge Information: and Continuing Care: Lab Results - Pending: Surgical Pathology Drawn at 12-Feb-2023 12:51:00 Radiology Results - Pending: None Discharge Instructions: Activity: activity as tolerated. May shower.. May not return to school/work until follow-up visit with. your surgeon May not drive while taking narcotics. No pushing, pulling, or lifting objects greater than 10 pounds for 2. Slowly increase your activity each day. No strenuous or vigorous exercising until cleared by your surgeon. Nutrition/Diet: regular Infectious Disease: PPD Status: not given MRSA: no VRE: no C. Diff: no Other Resistant Organism: no Isolation Type: none Follow Up Appointments: Follow-Up Appointment 01: Physician/Dept/Service: Dr. Oates - ENT Reason for Referral: post op Scheduled Date/Time: 26-Feb-2023 10:45 Location: [facility] 1st Floor Desk [address] [address] [place] [address] with questions Discharge Medications: Home Medication magnesium oxide 400 mg oral tablet - 1 tab(s) orally once a day Multiple Vitamins with Minerals oral tablet, chewable - 1 tab(s) orally once a day Vitamin C 500 mg oral tablet - 1 tab(s) orally once a day Vitamin D3 25 mcg (1000 intl units) oral capsule - 1 cap(s) orally once a day Zinc 140 mg (as elemental zinc 50 mg) oral tablet - 1 tab(s) orally once a day senna (sennosides) 8.6 mg oral tablet - 1 tab(s) orally once a day x 10 days -.ADOD 02/14 - .Meds to Beds - .[facility] Location [facility] Vaseline topical ointment - Apply topically to affected area 2 times a day -.ADOD 02/14- .Meds to Beds - .Patient Location [facility]ie acetaminophen 500 mg oral capsule - 2 cap(s) orally every 8 hours -.ADOD 02/13 - .Meds to Beds - .Patient Location [facility] Colace 100 mg oral capsule - 1 cap(s) orally 2 times a day , while taking pain medication -.ADOD 02/14- .Meds to Beds - .Patient Location [facility] MiraLax (more content not included)... 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 Right SCM advancement closure 2. Complex closure of right face and neck measuring 20cm Surgeon: Feliciano Resident/Fellow/Other Land Leases [employer] Rentals Manager: Geena Wetzel Baker Anesthesia: General Estimated Blood Loss (mL): 5 cc Specimen: no Complications: None Findings: SCM advancement with adequate closure of soft tissue defects Patient Returned To/Condition: Pacu/stable Drains and/or Catheters: 1 right neck PABLITO drain Operative Report Dictated: Dictation: not applicable - note contains Operative Report Operative Report: Operative Findings: 1. Mild defect of the right level 2 neck and tail of parotid region. Not extensive enough to necessitate a local advancement submental or free flap. Operative Indications: Patient is a 52-year-old male who has a history of multiple basal cell carcinomas of the taoist, forehead, and cheek. He recently presented with a right parotid mass, FNA showed squamous cell carcinoma. A CT showed a 2.5 cm mass at the tail of the parotid, adherent to the SCM with concerns for invasion. There was some concerns for lymphadenopathy. Clinically his facial nerve is intact. Therefore parotidectomy with resection of mass, neck dissection and, consideration for reconstruction with local versus free flap tissue was discussed and would be determined by the extent of the resection. Risks, benefits and alternatives were discussed with the patient and family. They did agree to proceed and did sign written informed consent. Operative Dictation: The patient was seen in the preoperative setting and written informed consent was obtained. The patient was then taken back to the operating room and transferred to the operating room table. A preoperative timeout was then performed by Dr. Bautista. The patient was then successfully sedated and intubated by the anesthesia team. The head of the bed was then rotated 90 degrees and the patient was then prepped and draped in a sterile manner. Dr. Bautista had completed the resection of the parotid lesion in the neck dissection. I arrived to assess the defect and perform reconstruction. However upon my assessment there was minimal soft tissue defect, and there was no significant exposure of the great vessels therefore free flap or submental was not indicated. He had a sufficient bulk of his SCM muscle. We decided to advance this over to cover the exposed jugular vein and help fill the soft tissue defect. Prior to doing this, we ensured hemostasis into the resection cavity. There was thorough irrigation, Valsalva was performed. A 10 flat drain was placed underneath the SCM into the gutter, and secured with a 2-0 silk. Then we used Bovie to elevate the posterior border of the SCM taking care to preserve cranial nerve XI. The greater auricular nerve was already sacrificed. This improved mobility of the muscle. We were then able to advance this anteriorly. Using a 3-0 Vicryl we secured the anterior border of the SCM to the deep tissue underneath the mandible and level 1B tissue. This provided good coverage of the exposed jugular vein as well as a fair amount of contour to fill the defect. Once this was secured we turned our attention to closure. A complex closure was performed with multiple layers measuring 20cm. We used 3-0 Vicryl was used to reapproximate the deep dermal and platysmal layers. A 5-0 fast was then used for skin closure The patient was then handed over the anesthesia team and successfully extubated. The patient was taken to the postoperative anesthesia care unit. The patient tolerated the procedure well and there were no complications. Dr. Oates was present for the critical portions of the procedure Attestation: Note Completion: I am a:Resident/Fellow Attending AttestationI was present for wills portions of the procedure and the procedure lasted longer than 5 minutes. Electronic Signatures: Renato Oates) (Signed 16-Feb-2023 23:13) Authored: Post Operative Note, Note Completion Co-Signer: Post Operative Note, Note Completion Joann Wetzel (Resident)) (Signed 12-Feb-2023 16:38) Authored: Post Operative Note, Note Completion Last Updated: 16-Feb-2023 23:13 by Renato Oates) [facility] 02-12-2023 Note Post Operative Note: PreOp Diagnosis: squamous cell carcinoma of the parotid Post-Procedure Diagnosis: squamous cell carcinoma of the parotid Procedure: 1. right parotidectomy with facial nerve dissection 2. Right selective neck dissection levels I-Iv 3. Right selective level 1B neck dissection Surgeon: Lily Resident/Fellow/Other Land Leases And Rentals Manager: Geena Wetzel Peddireddy Anesthesia: general Estimated Blood Loss (mL): 50 Specimen: yes. right parotid mass, right neck dissection levels II-IV, 1B lymph nodes Complications: none Findings: 4 cm tumor of tail of parotid with grossly clear margins, retrograde dissection with preservation of nerve Patient Returned To/Condition: remained in OR for Dr. Love portion Operative Report Dictated Dictation: not applicable - note contains Operative Report Operative Report: Preoperative Diagnosis: 1. squamous cell carcinoma of the parotid Postoperative Diagnoses: 1. squamous cell carcinoma of the parotid Operation/Procedure(s): 1. right parotidectomy with facial nerve dissection 2. Right selective neck dissection levels I-Iv 3. Right selective level 1B neck dissection Operative Findings: 1. 4 cm tumor of tail of parotid with grossly clear margins, retrograde dissection with preservation of nerve Operative Indications: Patient is a 52-year-old male who presented with a history of multiple basal cell carcinomas of the taoist, forehead and cheek. He presented with a recent new right parotid lesion, FNA was done which showed squamous cell carcinoma. A CT neck showed a 2.5 cm mass with intrinsic calcification concerns for adherence to the SCM. Clinically his facial nerve was intact. Given squamous cell carcinoma noted in the parotid this was felt to be a cutaneous etiology and therefore resection with neck dissection is indicated with potential reconstruction. Risks, benefits and alternatives were discussed with the patient and family including but not limited to the risk for facial nerve injury, cranial nerve XI injury, facial contouring defect. They did agree to proceed and did sign written informed consent. Operative Dictation: The patient was seen in the preoperative setting and written informed consent was obtained. The patient was then taken back to the operating room and transferred to the operating room table. A preoperative timeout was then performed by Dr. Bautista. The patient was then successfully sedated and intubated by the anesthesia team. A right sided modified Bebo incision extending to the level of the hyoid was planned to allow for adequate dissection of the neck dissection as well as use of the potential submental island flap. Facial nerve monitors were applied and monitoring was used throughout the case. The incision was then injected with 1% 1-100,000 lidocaine with epinephrine. The head of the bed was then rotated 90 degrees and the patient was then prepped and draped in a sterile manner. 15 blade was used to incise through the skin and deep dermis. a Bovie was then used to divide the platysma inferiorly, and access the parotid fascia. At this point we raised an anteriorly based sub SMAS flap taking care to not violate the parotid until we had adequately expose the mass over the parotid. A subplatysmal flap was raised superiorly at the inferior aspect of the incision to improve exposure. Once we felt that the entirety of the mass was exposed, we then identified and opened the anterior border of the SCM along the entire length from its attachment at the mastoid to the level of the omohyoid. The great auricular nerve was noted to be coursing into the mass and this was sacrificed. We continue to roll the SCM laterally, the internal jugular vein was identified superiorly. We then identified cranial nerve XI. Finally we identified the posterior belly of the digastric and traced this posteriorly to its attachment on the mastoid, and anteriorly to the digastric tendon At this point we turned our attention to excision of the parotid lesion. The posterior aspect of it was freed from the SCM with a small cuff of muscle taken with it. We extended this anteriorly continue to take small portions of the SCM as a cuff for margins. We then pursued a retrograde dissection of the facial nerve. We found first the cervical branch and this was traced superiorly freeing the parotid lesion from this. We then found a branch of the marginal mandibular nerve near the level of the angle of the mandible, this was also traced proximally towards the pes. As we traced these branches, there was noted to be a good plane between the nerve and the tumor. We slowly freed the tumor from the nerve branches as we proceeded proximally along the course of the nerves. Once we had the portion of the mass freed there were minimal attachments superiorly. The parotid tissue superficial to the level of the nerve was then divid (more content not included)... [facility] 02-12-2023 History of Present illness Narrative Mr. BALWINDER MCKINNEY, is a 52 year old male here for post op follow up s/p right neck dissection, right parotidectomy right SCM advancement closure on 02/12/[address] Bautista. Path is still pending. Patient reports some pain in his right neck. He has a shooting pain in his head and right ear that happens around 3-6pm. This is relieved by 1 oxycodone. He also has some weakness of the right spinal accessory nerve. Overall doing well.SH:Tob: DeniesETOH: OccasionalHere aloneBy signing my name below, I, Jeannette Brody, attest that this documentation has been prepared under the direction and in the presence of Dr. Renato Oates MD.All medical record entries made by the Jeannette were at my direction and personally dictated by me, Dr. Renato Oates. I have reviewed the chart and agree that the record accurately reflects my personal performance of the history, physical exam, discussion and plan. [id number] Work Phone: 02-12-2023 History of Present illness Narrative Mr. BALWINDER MCKINNEY, is a 52 year old male here for post op follow up s/p right neck dissection, right parotidectomy right SCM advancement closure on 02/12/[address] Bautista. Path is still pending. Patient reports some pain in his right neck. He has a shooting pain in his head and right ear that happens around 3-6pm. This is relieved by 1 oxycodone. He also has some weakness of the right spinal accessory nerve. Overall doing well.SH:Tob: DeniesETOH: OccasionalHere aloneBy signing my name below, I, Jeannette Brody, attest that this documentation has been prepared under the direction and in the presence of Dr. Renato Oates MD.All medical record entries made by the Nidhiibdagmar were at my direction and personally dictated by me, Dr. Renato Oates. I have reviewed the chart and agree that the record accurately reflects my personal performance of the history, physical exam, discussion and plan. QR-Qevhjgfsyzxhto-Dndpt [place] [address] Work Phone: 02-12-2023 Note Clinical Note - Santi lance v2: Education: Document TopicMedication Education MedicationMeds to Beds: M2B service not offered prior to surgery, please reassess prior to patient discharge if Meds to Beds is desired. Sources used to confirm home medication list: patient interview - good historian of medications/ Pharmacy - [facility] [place]/ Chart Review Medication reconciliation complete Please reach out via [employer] for questions, or if no response call [phone] or [employer] [facility] Allyssa ButlerD, Transitions of Care Pharmacist [facility] Is This Intervention Medication Reconciliation Relatedyes Topichistory Additional NotesHome Medications Review Status for Reconciliation: Complete Med Status: Patient Currently Takes Medications Drug Name: magnesium oxide 400 mg oral tablet Instructions: 1 tab(s) orally once a day Drug Name: Multiple Vitamins with Minerals oral tablet, chewable Instructions: 1 tab(s) orally once a day Drug Name: Vitamin C 500 mg oral tablet Instructions: 1 tab(s) orally once a day Drug Name: Vitamin D3 25 mcg (1000 intl units) oral capsule Instructions: 1 cap(s) orally once a day Drug Name: Zinc 140 mg (as elemental zinc 50 mg) oral tablet Instructions: 1 tab(s) orally once a day Drug Name: hydrocortisone 2.5% topical ointment Instructions: Apply topically to affected area 3 times a day, As Needed for poison tank History Topichistory interview Allergy: Allergies Summary No Known Allergies Electronic Signatures: Pat Flores (PharmD) (Signed 12-Feb-2023 09:01) Authored: Education, Allergy Last Updated: 12-Feb-2023 09:01 by Pat Flores (PharmD) [facility] 02-12-2023 Note History & Physical R eviewed: I have reviewed the History and Physical dated: 10-Feb-2023 History and Physical reviewed and relevant findings noted. Patient examined to review pertinent physical findings.: No significant changes Home Medications Reviewed: no changes noted Allergies Reviewed: no changes noted ERAS (Enhanced Recovery After Surgery): ERAS Patient: no Consent: COVID-19 Consent: COVID-19 Risk ConsentSurgeon has reviewed wills risks related to the risk of mariia COVID-19 and if they contract COVID-19 what the risks are. Attestation: Note Completion: I am a: Resident/Fellow Attending AttestationI saw and evaluated the patient. I personally obtained the wills and critical portions of the history and physical exam or was physically present for wills and critical portions performed by the resident/fellow. I reviewed the resident/fellows documentation and discussed the patient with the resident/fellow. I agree with the resident/fellows medical decision making as documented in the note. 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 He has a history of cutaneous malignancies on his right taoist and near the nasolabial fold. Pathology from those were Basal cell carcinoma which we requested for review. He is scheduled for surgery this week. His CT scan was reviewed showing a mass in the right parotid gland. He also had a PET scan which was reviewed and this did not show any other regional lymphadenopathy AQ-Zisxxwxgdfkcmt-Ailnpo ke Work Phone: 08-20-2022 History of Present illness Narrative Mr. BALWINDER MCKINNEY, is a 52 year old male referred to me today by Dr. Godoy for further evaluation and treatment of right parotid squamous cell cancer. Patient with a history of basal cell carcinomas of his right taoist and right cheek (near his nose). Patient reports he thinks he had the most recent one removed from his right taoist about [address] Anderson in [place]. Patient was seen by Dr. Godoy in December for a right parotid mass. Patient had an FNA of the right parotid mass on 01/15/23 which showed a squamous cell carcinoma. Patient had a CT neck w/ contrast on 01/16/23 which I personally reviewed. The CT neck showed an aggressive appearing heterogeneously enhancing mass with intrinsic calcifications in the right parotid tail measuring up to 2.5 cm. This is inseparable from the right sternocleidomastoid muscle. Patient had a PET scan on 01/31/23 which I was able to personally review. This shows focally intensely increased FDG uptake within a mass in the inferior aspect of the right parotid gland with an SUV of 18.8. There is no uptake anywhere else in the head/neck or distant metastasis. Denies odynophagia, dysphagia or otalgia. Tolerating a regular diet. Denies weight loss. No fevers/chills. No night sweats. +sun exposure from love of golAffresolgI have personally reviewed PMH (HTN), PSH (denies), FH (reviewed and not pertinent to the presenting complaint except as noted above)SH:Tob: DeniesETOH: OccasionalHere with wifeBy signing my name below, I, Jeannette Frakn, attest that this documentation has been prepared under the direction and in the presence of Dr. Renato Oates MD.All medical record entries made by the Nidhiibdagmar were at my direction and personally dictated by me, Dr. Renato Oates. I have reviewed the chart and agree that the record accurately reflects my personal performance of the history, physical exam, discussion and plan. BW-Ttcuswdlqgmvtd-Ug[facility]a [place] [address] Work Phone: 08-08-2022 History of Present illness Narrative Mr. BALWINDER MCKINNEY, is a 52 year old male referred to me today by Dr. Godoy for further evaluation and treatment of right parotid squamous cell cancer. Patient with a history of basal cell carcinomas of his taoist/forehead/and left cheek. Patient reports he thinks he had the most recent one removed from his left taoist about [address] Anderson in [place]. Patient was seen by Dr. Godoy in December for a right parotid mass. Patient had an FNA of the right parotid mass on 01/15/23 which showed a squamous cell carcinoma. Patient had a CT neck w/ contrast on 01/16/23 which I personally reviewed. The CT neck showed an aggressive appearing heterogeneously enhancing mass with intrinsic calcifications in the right parotid tail measuring up to 2.5 cm. This is nseparable from the right sternocleidomastoid muscle. Patient had a PET scan on 01/31/23 which I was able to personally review. This shows focally intensely increased FDG uptake within a mass in the inferior aspect of the right parotid gland with an SUV of 18.8.I have personally reviewed PMH, PSH, FH (reviewed and not pertinent to the presenting complaint except as noted above) and SH which are provided in the attached Adult Patient Questionnaire which is scanned into the electronic medical record.SH:Tob:ETOH:Here with wifeBy signing my name below, I, Jeannette Frank, attest that this documentation has been prepared under the direction and in the presence of Dr. Renato Oates MD.All medical record entries made by the Jeannette were at my direction and personally dictated by me, Dr. Renato Oates. I have reviewed the chart and agree that the record accurately reflects my personal performance of the history, physical exam, discussion and plan. XZ-Jozcacwlovpswx-Norrtl jose Work Phone: 11-15-2021 History of Present illness Narrative Balwinder is a 51 yo male with large right posterior lateral internal prolapsing hemorrhoid that was not reducible. He was evaluated last week and hemorrhoid was able to be reduced. He has never had a colonoscopy.He is doing better this week. His pain subsided about 3-4 days ago. He is taking warm baths and using Nifedipine/Lidocaine ointment which has helped with discomfort. He believes the hemorrhoid has reduced in size and is able to be reduced. He still has occasional bleeding when wiping but no black or bloody stools. He has increased water and fiber intake which has helped regulate bowel function and stools are soft with no pushing or straining. He is no longer sitting on the toilet for prolonged periods of time. [facility] Work Phone: 11-08-2021 History of Present illness Narrative Balwinder is a 51 yo male with large right posterior lateral internal prolapsing hemorrhoid that was not reducible. He was evaluated last week and hemorrhoid was able to be reduced. He has never had a colonoscopy.He is doing better this week. His pain subsided about 3-4 days ago. He is taking warm baths and using Nifedipine/Lidocaine ointment which has helped with discomfort. He believes the hemorrhoid has reduced in size and is able to be reduced. He still has occasional bleeding when wiping but no black or bloody stools. He has increased water and fiber intake which has helped regulate bowel function and stools are soft with no pushing or straining. He is no longer sitting on the toilet for prolonged periods of time. [facility] Work Phone: 09-12-2021 History of Present illness Narrative Balwinder is a 51 yo male with large right posterior lateral internal prolapsing hemorrhoid that was not reducible. He was evaluated last week and hemorrhoid was able to be reduced. He has never had a colonoscopy.He is doing better this week. His pain subsided about 3-4 days ago. He is taking warm baths and using Nifedipine/Lidocaine ointment which has helped with discomfort. He believes the hemorrhoid has reduced in size and is able to be reduced. He still has occasional bleeding when wiping but no black or bloody stools. He has increased water and fiber intake which has helped regulate bowel function and stools are soft with no pushing or straining. He is no longer sitting on the toilet for prolonged periods of time. EK-Oadgprnnxkkbijxx-[place] [address] [facility] Work Phone: 09-04-2021 History of Present illness Narrative NEW PT. F/U AFTER ER VISIT 2 DAYS AGO FOR RECTAL PAIN WITH BRIGHT RED BLOOD IN STOOL AND RECTAL PROLAPSE.. PT WAS GIVEN LIDOCAINE AND NIFEDIPINE CREAM FOR RECTAL AREA. SURGICAL CONSULT WAS DONE AT ER AND PT IS SUPPOSED TO HAVE THE F/U WITH SURGEON.STILL HAS THE RECTAL PAIN 8-10/10 ON AND OFF . PROLAPSE IS REDUCIBLE (BUT VERY PAINFUL PER PT) AND IT BULGES OUT AFTER FEW SECONDS .HAS CHRONIC CONSTIPATION . THE RECTAL PROLAPSE HAS BEEN PRESENT FOR 2-3 YEARS, BUT GOT ACUTELY WORSE AND MORE PAINFUL AFTER SITTING ON TOILET FOR LONG PERIOD OF TIME . COLACE PRN WAS GIVEN FOR CHRONIC CONSTIPATION. PT WAS DOING WEIGHT LIFTING IN THE PAST FOR EXERCISE. -[facility] Internal Medicine Work Phone: 09-12-2018 History of Present illness Narrative Balwinder is a 51 yo male with prolapsing internal hemorrhoids for the past few years that he were able to reduce on their own, however on 09/02 he was not able to reduce hemorrhoid which caused increased pain. He was evaluated in the ED and was prescribed an ointment. He was evaluated by gen surg yesterday and the hemorrhoid was able to be reduced but did not stay in, however his pain decreased. He is unsure if it has reduced in size. He moves his bowels once a day and stool is brown, soft and formed with no black or bloody stools. He has noticed bright red blood dripping in the toilet every few weeks when he sits on the toilet for too long. He sits up to 10 min to completely evacuate stool and he tries to not push/strain. He has no bowel urgency or incontinence. He occasionally has abdominal cramping when he needs to move his bowels but no pain. He has lost 8lbs in the last few weeks because he changed his diet and he is trying to increase his fiber and reduce the intake of processed foods. He has also increased his water intake to 8+ glasses of water per day. He has tried taking Colace to help soften stools but he did not see any improvements. He has no fever, chills, nausea or vomiting. 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 He was seen by Dr. Callahan in the ER and had this reduced and was prescribed some medication. He states the discomfort continues. He states he has not tried to push it back in because he thought the swelling would go down better with it out. I explained to them about the anal sphincter.-[facility] Work Phone: Hospital Discharge instructions* Activity:activity as tolerated. May shower. May not return to school/work until follow-up visit with your surgeon Instructions:. May not drive while taking narcotics. No pushing, pulling, or lifting objects greater than 10 pounds for 2. Other activity instructions: Slowly increase your activity each day. No strenuous or vigorous exercising until cleared by your surgeon. * Call Provider If:Breathing faster than normal. Breathing harder than normal or having retractions. Fever of 100.4 F (38 C) or higher. Chills. Drinking less than normal. Urinating less than normal, over 1 day. Acting very sleepy and difficult to awaken. Vomiting (throwing up) and not able to eat or drink for 12 hours. 3 or more loose, watery bowel movements in 24 hours (diarrhea). Any new concerning symptoms. * Follow Up Appointment 1:Physician/Dept/Service: Dr. Feliciano Quach for Referral: post opScheduled Date/Time: 26-Feb-2023 10:45Location: [facility] 1st Floor Desk [address] [place], [place] [address]Peobq Number: [phone] with questionsComments: Please arrive 10-15 minutes ea rly, bring photo ID, insurance information, and current list of medications. If unable to keep thisappointment, please call to cancel at least 24 hours prior to appointment. * Incision Care:Facial/Neck Incision Care: Cleanse all facial/neck incisions twice daily with baby shampoo or mild soap and water. Apply petroleum jelly/vaseline to incision line twice daily until incision has healed. [facility] Chief Complaint NPV; ER FU PROLAPSED INTERNAL HEMORRHOIDS; C/O PT STATES THEY ARE COMING OUT; AND PAINFUL, BLEEDING.Ref by [facility] for rectal pain and rectal bulge. Pt has seen some bright red rectal bleeding after bowel movements. Denies family hx of colon cancer.HemorrhoidRef by [facility] for rectal pain and rectal bulge. Pt has seen some bright red rectal bleeding after bowel movements. Denies family hx of colon cancer.Ref by [facility] for rectal pain and rectal bulge. Pt has seen some bright red rectal bleeding after bowel movements. Denies family hx of colon cancer.FUVFUV FUVright parotid gland cancer* A telephone visit (audio only) between the patient (at the originating site) and the provider (at the distant site) was utilized to provide this telehealth service. * Verbal consent was requested and obtained from BALWINDER MCKINNEY on this date, 02/10/2023 02:45 PM , for a telehealth visit. * Discuss upcoming surgery right parotid gland cancerpost op follow uppost op follow up Family History Unknown Family Member Name Dates Details No pertinent family history: Mother(V49.89, Z78.9) Status:Active No pertinent past surgical h istory: Grandparent, Grandfather(V49.89, Z78.9) Status:Active Unknown Family Member Name Dates Details No pertinent family history: Mother(V49.89, Z78.9) Status:Active No pertinent past surgical h istory: Grandparent, Grandfather(V49.89, Z78.9) Status:Active Unknown Family Member Name Dates Details No pertinent family history: Mother(V49.89, Z78.9) Status:Active No pertinent past surgical h istory: Grandparent, Grandfather(V49.89, Z78.9) Status:Active Unknown Family Member Name Dates Details No pertinent past surgical h istory: Grandparent, Grandfather(V49.89, Z78.9) Status:Active No pertinent family history: Mother(V49.89, Z78.9) Status:Active Unknown Family Member Name Dates Details No pertinent family history: Mother(V49.89, Z78.9) Status:Active No pertinent past surgical h istory: Grandparent, Grandfather(V49.89, Z78.9) Status:Active Unknown Family Member Name Dates Details No pertinent family history: Mother(V49.89, Z78.9) Status:Active No pertinent past surgical h istory: Grandparent, Grandfather(V49.89, Z78.9) Status:Active Unknown Family Member Name Dates Details No pertinent family history: Mother(V49.89, Z78.9) Status:Active No pertinent past surgical h istory: Grandparent, Grandfather(V49.89, Z78.9) Status:Active Unknown Family Member Name Dates Details No pertinent past surgical h istory: Grandparent, Grandfather(V49.89, Z78.9) Status:Active No pertinent family history: Mother(V49.89, Z78.9) Status:Active Unknown Family Member Name Dates Details No pertinent family history: Mother(V49.89, Z78.9) Status:Active No pertinent past surgical h istory: Grandparent, Grandfather(V49.89, Z78.9) Status:Active Unknown Family Member Name Dates Details No pertinent family history: Mother(V49.89, Z78.9) Status:Active No pertinent past surgical h istory: Grandparent, Grandfather(V49.89, Z78.9) Status:Active Unknown Family Member Name Dates Details No pertinent family history: Mother(V49.89, Z78.9) Status:Active No pertinent past surgical h istory: Grandparent, Grandfather(V49.89, Z78.9) Status:Active Unknown Family Member Name Dates Details No pertinent family history: Mother(V49.89, Z78.9) Status:Active No pertinent past surgical h istory: Grandparent, Grandfather(V49.89, Z78.9) Status:Active Unknown Family Member Name Dates Details No pertinent family history: Mother(V49.89, Z78.9) Status:Active No pertinent past surgical h istory: Grandparent, Grandfather(V49.89, Z78.9) Status:Active Summary Purpose Advance Directives No Advanced Directives Records FoundNo Advanced Directives Records FoundNo Advanced Directives Records FoundNo Advanced Directives Records FoundNo Advanced Directives Records Found Additional Source Comments <item><item> Privacy Markings (unrecogniz ed section and content) Section Author: Eugenia Briceno PROHIBITION ON REDISCLOSURE OF CONFIDENTIAL INFORMATION This notice accompanies a disclosure of information concerning a client made to you with the consent of such client. Section Author: Eugenia Briceno PROHIBITION ON REDISCLOSURE OF CONFIDENTIAL INFORMATION This notice accompanies a disclosure of information concerning a client made to you with the consent of such client. (unrecognized sect ion and content) No Status Records FoundNo Status Records FoundNo Status Records FoundNo Status Records FoundNo Status Records Found INFORMATION SOURCE (unrecogn ized section and content) DATE CREATED AUTHOR AUTHOR'S ORGANIZ ATION 03/12/2023 [facility] DATE CREATED AUTHOR AUTHOR'S ORGANIZ ATION 03/14/2023 [employer] DATE CREATED AUTHOR AUTHOR'S ORGANIZ ATION 03/27/2023 [facility] DATE CREATED AUTHOR AUTHOR'S ORGANIZ ATION 08/21/2023 [facility] Reason for Visit (unrecogniz ed section and content) Reason Comments Follow-up Right side parotidec lorraine Reason Comments Follow-up Right parotid Care Teams (unrecognized sec tion and content) Acute Care Assistant Relationship Specialty Start Date End Date Arabella Elkins APRN-MJ [address] [place] [address] PCP - Jameson ZAVALA PCP 11/21/21 Douglas Rios MD [address] [place] [address] PCP - General Internal Medicine 10/21/22 Acute Care Assistant Relationship Specialty Start Date End Date Arabella Elkins APRN-CNP [address] [place] [address] PCP - Jameson ZAVALA PCP 11/21/21 Douglas Rios MD [address] [place] [place] [address] PCP - General Internal Medicine 10/21/22 FOR RECORDS PERTAINING TO PATIENTS WHO ARE OR HAVE BEEN ENROLLED IN A CHEMICAL DEPENDENCY/SUBSTANCEABUSE PROGRAM, SOME INFORMATION MAY BE OMITTED. This clinical summary was aggregated from multiple sources. Caution should be exercised in using it in the provision of clinical care. This summary normalizes information from multiple sources, and as a consequence, information in this document may materially change the coding, format and clinical context of patient data. In addition, data may be omitted in some cases. CLINICAL DECISIONS SHOULD BE BASED ON THE PRIMARY CLINICAL RECORDS. [facility]. provides no warranty or guarantee of the accuracy or completeness of information in this document.
== END | disposition home or self-care (01) ==
LOC: RAD 13:07
PROVIDERS: PCP Internal Medicine; Referring Provider Student in an Organized Health Care Education/Training Program; Visit Provider Student in an Organized Health Care Education/Training Program
DX: C07 Malignant neoplasm of parotid gland (principal)
CPT/HCPCS: 74230; 92611